=== PATIENT | female | born 1975 | race Caucasian/White ===

== ENCOUNTER → 2018-05-14 | Day surgery (SDC) | payer BC ==
[~2018-05-14] MED LIST: Acetaminophen/oxyCODONE 325-5 MG Tab PO PRN; Bupivacaine 0.5% 30 ML SDV ONE; Dexamethasone 4 MG/ML 5 ML MDV ONE; HYDROmorphone 0.5 MG/0.5 ML Syringe IVPUSH PRN; Haloperidol Lactate 5 MG/ML SDV IVPUSH PRN; Ketorolac 30 MG/ML SDV IVPUSH SCH; Ketorolac 30 MG/ML SDV ONE; Lactated Ringers 1,000 ML IV SCH; Lactated Ringers 1,000 ML ONE; Lidocaine 1% PF 2 ML SDV ONE; Lidocaine 1%/Sod Bicarbonate in NS 8.4% 1 ML Syringe IDERM PRN; Midazolam 1 MG/ML 2 ML SDV ONE; Neostigmine Methylsulfate 1 MG/ML 5 ML Syringe ONE; Ondansetron 4 MG/2 ML SDV IVPUSH PRN; Ondansetron 4 MG/2 ML SDV ONE; Propofol 200 MG/20 ML SDV ONE; Rocuronium 50 MG/5 ML Vial ONE; Scopolamine 1.5 MG Transdermal Patch TOP ONE; Sodium Chloride 0.9% 10 ML Syringe FLUSH PRN; ceFAZolin 1 GM Vial ONE; diphenhydrAMINE 50 MG/ML SDV IVPUSH PRN; fentaNYL 100 MCG/2 ML SDV IVPUSH PRN; fentaNYL 250 MCG/5 ML SDV ONE
--- NOTE | 2018-05-14 07:51 | PCM.PREANE ---
Preanesthetic Assessment - Anesthesia/Transfusion/Family Hx Anesthesia History: Prior Anesthesia Reaction Family History of Anesthesia Reaction: No - Review of Systems General: No Symptoms Pulmonary: No Symptoms Cardiovascular: No Symptoms Gastrointestinal: No Symptoms Neurological: No Symptoms Other: Reports: None - Physical Assessment NPO Status Date: 05/13/18 NPO Status Time: 21:30 O2 Sat by Pulse Oximetry: 97 Respiratory Rate: 16 Vital Signs: Last Vital Signs Temp 36.3 C 05/14/18 07:05 Pulse 94 05/14/18 07:05 Resp 16 05/14/18 07:05 BP 128/83 05/14/18 07:05 Pulse Ox 97 05/14/18 07:05 Height: 1.6 m Weight: 105.687 kg ASA Class: 2 Mental Status: Alert & Oriented x3 Airway Class: Mallampati = 2 Dentition: Reports: Normal Dentition Thyro-Mental Finger Breadths: 3 Mouth Opening Finger Breadths: 2 ROM/Head Extension: Full Lungs: Clear to Auscultation, Normal Respiratory Effort Cardiovascular: Regular Rate, Regular Rhythm - Lab Values: Laboratory Last Values WBC 6.90 K/mm3 (3.98-10.04) 05/09/18 11:45 RBC 5.19 M/mm3 (3.98-5.22) 05/09/18 11:45 Hgb 14.9 gm/L (11.2-15.7) 05/09/18 11:45 Hct 45.3 % (34.1-44.9) H 05/09/18 11:45 MCV 87.3 fl (79.4-94.8) 05/09/18 11:45 MCH 28.7 pg (25.6-32.2) 05/09/18 11:45 MCHC 32.9 g/dl (32.2-35.5) 05/09/18 11:45 RDW Std Deviation 42.4 fL (36.4-46.3) 05/09/18 11:45 Plt Count 430 K/mm3 (182-369) H 05/09/18 11:45 MPV 9.8 fl (9.4-12.3) 05/09/18 11:45 Neut % (Auto) 63.3 % (34.0-71.1) 05/09/18 11:45 Lymph % (Auto) 28.0 % (19.3-51.7) 05/09/18 11:45 Andrew % (Auto) 7.4 % (4.7-12.5) 05/09/18 11:45 Eos % (Auto) 0.9 (0.7-5.8) 05/09/18 11:45 Baso % (Auto) 0.3 % (0.1-1.2) 05/09/18 11:45 Neut # (Auto) 4.37 K/mm3 (1.56-6.13) 05/09/18 11:45 Lymph # (Auto) 1.93 K/mm3 (1.18-3.74) 05/09/18 11:45 Andrew # (Auto) 0.51 K/mm3 (0.24-0.36) H 05/09/18 11:45 Eos # (Auto) 0.06 K/mm3 (0.04-0.36) 05/09/18 11:45 Baso # (Auto) 0.02 K/mm3 (0.01-0.08) 05/09/18 11:45 Creatinine 0.9 mg/dL (0.55-1.02) 05/09/18 11:45 Est Cr Clr Drug Dosing TNP 05/09/18 11:45 Estimated GFR (MDRD) > 60 mL/min (>60) 05/09/18 11:45 Urine Color Yellow (Yellow) 05/09/18 11:45 Urine Appearance Slt cloudy (Clear) H 05/09/18 11:45 Urine pH 6.0 (5.0-8.0) 05/09/18 11:45 Ur Specific [place] 1.015 (1.005-1.030) 05/09/18 11:45 Urine Protein Negative (Negative) 05/09/18 11:45 Urine Glucose (UA) Negative (Negative) 05/09/18 11:45 Urine Ketones Negative (Negative) 05/09/18 11:45 Urine Occult Blood 3+ (Negative) H 05/09/18 11:45 Urine Nitrite Negative (Negative) 05/09/18 11:45 Urine Bilirubin Negative (Negative) 05/09/18 11:45 Urine Urobilinogen 0.2 (0.2-1.0) 05/09/18 11:45 Ur Leukocyte Esterase Negative (Negative) 05/09/18 11:45 Urine RBC 20-30 /hpf (0-5) H 05/09/18 11:45 Urine WBC 0-5 /hpf (0-5) 05/09/18 11:45 Ur Epithelial Cells 5-10 /hpf (0-5) H 05/09/18 11:45 Urine Bacteria Not seen /hpf (FEW) 05/09/18 11:45 Urine Mucus Not seen /hpf (FEW) 05/09/18 11:45 Urine HCG, Qual Negative (NEGATIVE) 05/14/18 07:05 - Allergies Allergies/Adverse Reactions: Allergies Allergy/AdvReac Type Severity Reaction Status Date / Time No Known Allergies Allergy Verified 05/14/18 07:41 - Anesthesia Plan Pre-Op Medication Ordered: Anxiolytic, Other (Scopalamine) - Acknowledgements Anesthesia Type Planned: General Anesthesia Pt an Appropriate Candidate for the Planned Anesthesia: Yes Alternatives and Risks of Anesthesia Discussed w Pt/Guardian: Yes Pt/Guardian Understands and Agrees with Anesthesia Plan: Yes PreAnesthesia Questionnaire HEENT History: Reports: Impaired Vision Cardiovascular History: Reports: High Cholesterol Respiratory History: Reports: None Genitourinary History: Reports: None ICU CLERK History: Reports: Other (See Below) Other OB/BYN History: OVARIAN CYST, MENORRHAGIA, DYSMENORRHEA, METROHAGGIA, THICKENED ENDOMETRIUM Musculoskeletal History: Reports: None Neurological History: Reports: None Psychiatric History: Reports: None Endocrine/Metabolic History: Reports: None Hematologic History: Reports: None Immunologic History: Reports: None Oncologic (Cancer) History: Reports: None Dermatologic History: Reports: None - Past Surgical History Head Surgeries/Procedures: Reports: None HEENT Surgical History: Reports: None Cardiovascular Surgical History: Reports: None Respiratory Surgical History: Reports: None GI Surgical History: Reports: Hernia, Inguinal Female Surgical History: Reports: None, Section Male Surgical History: Endocrine Surgical History: Reports: None Neurological Surgical History: Reports: None Musculoskeletal Surgical History: Reports: None Oncologic Surgical History: Reports: None Dermatological Surgical History: Reports: None - SUBSTANCE USE Smoking Status *Q: Never Smoker - HOME MEDS Home Medications: Home Meds Norethindrone-Ethinyl Estrad [Dasetta 1-35-28 Tablet] 1 tab PO DAILY 05/13/18 [ History] - CURRENT (IN HOUSE) MEDS Current Meds: Current Medications Lactated Ringer's (Ringers, Lactated) 1,000 mls @ 125 mls/hr IV ASDIRECTED TIN Stop: 05/14/18 23:00 Last Admin: 05/14/18 07:10 Dose: 125 mls/hr Lidocaine/Sodium Bicarbonate (Buffered Lidocaine 1% In Ns 8.4%) 0.25 ml IDERM ONETIME PRN PRN Reason: Prior to IV Start Stop: 05/14/18 18:00 Last Admin: 05/14/18 07:10 Dose: 0.25 ml Scopolamine (Transderm-Scop) 1.5 mg TOP ONETIME ONE Stop: 05/14/18 07:45 Sodium Chloride (Saline Flush) 10 ml FLUSH ASDIRECTED PRN PRN Reason: Keep Vein Open Stop: 05/14/18 18:00 Discontinued Medications Bupivacaine HCl (Marcaine 0.5%) Confirm Administered Dose 30 ml .ROUTE .STK-MED ONE Stop: 05/14/18 07:33 Cefazolin Sodium (Ancef) Confirm Administered Dose 2 gm .ROUTE .STK-MED ONE Stop: 05/14/18 07:20 Dexamethasone (Dexamethasone) Confirm Administered Dose 20 mg .ROUTE .STK-MED ONE Stop: 05/14/18 07:21 Fentanyl (Sublimaze) Confirm Administered Dose 250 mcg .ROUTE .STK-MED ONE Stop: 05/14/18 07:20 Lactated Ringer's (Ringers, Lactated) Confirm Administered Dose 1,000 mls @ as directed .ROUTE .STK-MED ONE Stop: 05/14/18 07:20 Ketorolac Tromethamine (Toradol) Confirm Administered Dose 30 mg .ROUTE .STK- MED ONE Stop: 05/14/18 07:21 Lidocaine HCl (Xylocaine-Mpf 1%) Confirm Administered Dose 4 ml .ROUTE .STK-MED ONE Stop: 05/14/18 07:20 Midazolam HCl (Versed 1 Mg/Ml) Confirm Administered Dose 2 mg .ROUTE .STK-MED ONE Stop: 05/14/18 07:20 Ondansetron HCl (Zofran) Confirm Administered Dose 4 mg .ROUTE .STK-MED ONE Stop: 05/14/18 07:20 Propofol (Diprivan 20 Ml) Confirm Administered Dose 400 mg .ROUTE .STK-MED ONE Stop: 05/14/18 07:20 Rocuronium [place] (Zemuron) Confirm Administered Dose 50 mg .ROUTE .K-MED ONE Stop: 05/14/18 07:20
--- NOTE | 2018-05-14 09:32 | PCM.OPNOTE ---
- General Post-Op/Procedure Note Date of Surgery/Procedure: 05/14/18 Operative Procedure(s): Laparoscopy, left salpingo-oophorectomy, lysis of pelvic adhesions Findings: On entrance into the abdomen patient was found to have omental adhesions to the anterior abdominal wall. The anterior middle surface of the uterus was adhered to the anterior abdominal wall. Left ovary was approximately 3 times normal size with greatest dimension approximately 4-5 cm. It was swollen with a smooth epithelial capsule consistent with underlying cyst. Cyst was not easily identified. Right ovary looked normal as did the right fallopian tube left fallopian tube looked normal also. It is difficult to identify portion of the ovary that was cystic and was normal ovarian tissue.. Appendix was surgically absent. Liver edges were normal in appearance. Pre Op Diagnosis: Left ovarian dermoid (immature cystic teratoma) Post-Op Diagnosis: Same with moderately dense pelvic adhesions. Anesthesia Technique: General ET Tube Other Anesthesia Type: Marcaine 0.5%local10 mL total. Primary Surgeon: Igor Mccoy Secondary Surgeon: Glenn Regalado Anesthesia Provider: Danielle Kimball Computational Theory Scientist: Patric Mueller Reason Computational Theory Scientist Was Necessary: Retraction, assistance, patient safety, quality of care. Role of Computational Theory Scientist: Same Pathology: Left fallopian tube and ovary in the same container. Fluid Replacement, Intraop: 1,300 Output, Urine Amount: 200 EBL in mLs: 5 Drain/Tube Comments:: Indwelling bladder catheter during surgery only. Complications: None Condition: Good Free Text/Narrative:: Surgery duration: 51 minutes Procedure: The patient was taken to the operating room and placed in supine position on the operative table. She had sequential compression stockings in place for DVT prophylaxis and had been given 2 g of Ancef IV for infection prophylaxis. She was administered general endotracheal anesthesia. After administration of anesthesia the patient was placed in dorsal lithotomy position and prepped and draped in usual fashion. An indwelling bladder catheter was placed as was a uterine manipulator. Infraumbilical incision site and suprapubic site and eventually left lower quadrant site were then infiltrated with approximately 3-4 mL of Marcaine 0.5%. 5 mm incisions were made in these areas. Verres needle was placed in the infraumbilical incision site and pneumoperitoneum was established was in 3.5 L of CO2. The laparoscopic balloon sleeve was then placed as was the scope. Under direct visualization the suprapubic site was developed with a 10 mm port. Pelvis was evaluated findings as above. Findings were as above described. Anatomy otherwise was unremarkable. The omental adhesion was taken down using the Enseal vessel closure system. The anterior uterine adhesion was also taken down to about the level of the cervix. This also with the Enseal vessel closure system. Decision was made to take the entire left ovary and fallopian tube out as it is difficult to delineate where in the ovary the cyst was and appeared be totally occupied by the cyst. The infundibulopelvic ligament was crossclamped and developed using the Enseal vessel closure system. The mesosalpinx was developed in a similar fashion. The entire tube and the left ovary were removed. There placed in an Endo Catch bag. This is brought forth through the suprapubic site. The fascial incision was enlarged to stenotic to allow for that. Small amount of yellow fatty good emanated from the bag at the site of the skin. An as felt that none went back into the abdominal cavity. The pelvis was evaluated hemostasis was confirmed. Lower sleeve was removed and using the Constantine Pozo closure device the lower incision was closed with Vicryl in routine fashion. The subcutaneous area was irrigated this case of any contamination cyst fluid. This was done with normal saline. The skin was incisions were closed with interrupted 4-0 Monocryl sutures and further approximated with Dermabond skin glue. Patient is awakened from general endotracheal anesthesia after the uterine manipulator and the [place] catheter removed. She left the operating room in good condition.
--- NOTE | 2018-05-14 09:37 | PCM.POSTAN ---
POST ANESTHESIA ASSESSMENT - MENTAL STATUS Mental Status: Alert, Oriented - VITAL SIGNS Pulse Rate: 93 SaO2: 97 Resp Rate: 19 Blood Pressure: 103/82 Temperature: 36.7 C - RESPIRATORY Respiratory Status: Respiratory Rate WNL, Airway Patent, O2 Saturation Stable - CARDIOVASCULAR CV Status: Pulse Rate WNL, Blood Pressure Stable - GASTROINTESTINAL GI Status: No Symptoms - PAIN Pain Score: 0 - POST OP HYDRATION Hydration Status: Adequate & Stable
--- NOTE | 2018-05-14 13:47 | PCM48HPAN ---
Post Anesthesia Note - EVALUATION WITHIN 48HRS OF ANESTHETIC Vital Signs in Normal Range: Yes Patient Participated in Evaluation: Yes Respiratory Function Stable: Yes Airway Patent: Yes Cardiovascular Function Stable: Yes Hydration Status Stable: Yes Pain Control Satisfactory: Yes Nausea and Vomiting Control Satisfactory: Yes Mental Status Recovered: Yes
== END | disposition home or self-care (01) ==
LOC: JD.SDS 06:38
PROVIDERS: ATTEND Obstetrics & Gynecology
DX: D27.1 Benign neoplasm of left ovary (principal); N83.8 Other noninflammatory disorders of ovary, fallopian tube and broad ligament; K66.0 Peritoneal adhesions (postprocedural) (postinfection); E66.9 Obesity, unspecified; Z68.39 Body mass index [BMI] 39.0-39.9, adult; E78.1 Pure hyperglyceridemia; Z79.899 Other long term (current) drug therapy
CPT/HCPCS: 36415; 58661; 81001; 81025; 82565; 85025; A9270; J0690; J1100; J1885; J2001; J2250; J2405; J2704; J2710; J3010; J3490; J7120; 00840